=== PATIENT | female | born 1985 | race Caucasian/White ===

== ENCOUNTER 2018-07-30 08:06 | Emergency (ER) | payer OTHER ==
[2018-07-30 08:54] LABS: Absolute Lymphocytes (CBC) 1.4 K/uL (0.7-4.9); Absolute Monocytes 0.4 K/uL (0.1-1.3); Absolute Neutrophil 5.4 K/uL (1.8-8.0); Basophils % 0.3 % (0-1.3); Eosinophils % 1.4 % (0-4.4); Hematocrit 40.5 % (36.0-45.0); Lymphocytes % 18.9 % (15.3-44.8); MPV 9.3 fL (7.6-11.3); Monocytes % 6.1 % (3.3-12.3); RBC Red Blood Cell Count 4.59 M/uL (3.86-4.86)
[2018-07-30 09:16] LABS: Urine Blood NEGATIVE (NEG); Urine Glucose NEGATIVE (NEG); Urine Protein NEGATIVE (NEG)
[2018-07-30 09:34] LABS: BUN Blood Urea Nitrogen 8 mg/dL (7-18); Bicarbonate 27 mmol/L (21-32); Glucose Level 81 mg/dL (74-106); HCG, Quantitative 24024 mIU/mL (1-3); Potassium 3.7 mmol/L (3.5-5.1); Sodium Level 140 mmol/L (136-145)
--- NOTE | 2018-07-30 13:02 | RAD REPORT ---
EXAM DESCRIPTION: US - Transvaginal OB - 07/30/2018 12:49 pm CLINICAL HISTORY: with abdominal pain and vaginal bleeding COMPARISON: None. FINDINGS: The uterus 8 x 4 x 5 centimeters. A gestational sac is present within the endometrium. Wi thin this is a yolk sac and pole with a crown-rump length 3.7 millimeters. Cardiac activity 92 beats per minute. Small subchorionic bleed Ovaries normal in size and echotexture. A 1.5 centimeter right ovarian cyst An adnexal mass is not noted No significant free fluid is seen. IMPRESSION: Single live intrauterine with an estimated gestational age 6 weeks 1 day CURT 03/24/2019 Cardiac activity 92 beats per minute
--- NOTE | 2018-07-30 13:05 | EDPHYS ---
Physician Documentation [facility] Name: Mikaela Lara Age: 32 yrs Sex: Female : 1985 Arrival Date: 07/30/2018 Time: 08:12 Bed 20 Private MD: ED Physician Jean Claude Coombs HPI: 07/30 08:43 This 32 yrs old Female presents to ER via Ambulatory with complaints of snw Vaginal Bleeding, . 08:43 The patient presents with vaginal bleeding that is moderate, heavy. Onset: The snw symptoms/episode began/occurred suddenly, this morning. Modifying factors: The symptoms are alleviated by nothing. Severity of symptoms: At their worst the symptoms were moderate. The patient has experienced similar episodes in the past. The patient has not recently seen a physician. 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 - Social history:: Smoking status: Patient uses tobacco products, denies chronic smoking, but will smoke occasionally. - Ebola Screening: : Patient negative for fever greater than or equal to 101.5 degrees Fahrenheit, and additional compatible Ebola Virus Disease symptoms Patient denies exposure to infectious person Patient denies travel to an Ebola-affected area in the 21 days before illness onset No symptoms or risks identified at this time. ROS: 08:43 Constitutional: Negative for fever, chills, and weight loss, Eyes: Negative for injury, snw pain, redness, and discharge, ENT: Negative for injury, pain, and discharge, Neck: Negative for injury, pain, and swelling, Cardiovascular: Negative for chest pain, palpitations, and edema, Respiratory: Negative for shortness of breath, cough, wheezing, and pleuritic chest pain, Abdomen/GI: Negative for abdominal pain, nausea, vomiting, diarrhea, and constipation, Back: Negative for injury and pain, : Negative for injury, discharge, and swelling, +vaginal bleeding this am MS/Extremity: Negative for injury and deformity, Skin: Negative for injury, rash, and discoloration, Neuro: Negative for headache, weakness, numbness, tingling, and seizure. Exam: 08:43 Constitutional: This is a well developed, well nourished patient who is awake, alert, snw and in no acute distress. Head/Face: Normocephalic, atraumatic. Eyes: Pupils equal round and reactive to light, extra-ocular motions intact. Lids and lashes normal. Conjunctiva and sclera are non-icteric and not injected. Cornea within normal limits. Periorbital areas with no swelling, redness, or edema. ENT: Nares patent. No nasal discharge, no septal abnormalities noted. Tympanic membranes are normal and external auditory canals are clear. Oropharynx with no redness, swelling, or masses, exudates, or evidence of obstruction, uvula midline. Mucous membranes moist. Neck: Trachea midline, no thyromegaly or masses palpated, and no cervical lymphadenopathy. Supple, full range of motion without nuchal rigidity, or vertebral point tenderness. No Meningismus. Chest/axilla: Normal chest wall appearance and motion. Nontender with no deformity. No lesions are appreciated. Cardiovascular: Regular rate and rhythm with a normal S1 and S2. No gallops, murmurs, or rubs. Normal PMI, no JVD. No pulse deficits. Respiratory: Lungs have equal breath sounds bilaterally, clear to auscultation and percussion. No rales, rhonchi or wheezes noted. No increased work of breathing, no retractions or nasal flaring. Back: No spinal tenderness. No costovertebral tenderness. Full range of motion. Skin: Warm, dry with normal turgor. Normal color with no rashes, no lesions, and no evidence of cellulitis. MS/ Extremity: Pulses equal, no cyanosis. Neurovascular intact. Full, normal range of motion. Neuro: Awake and alert, GCS 15, oriented to person, place, time, and situation. Cranial nerves II-XII grossly intact. Motor strength 5/5 in all extremities. Sensory grossly intact. Cerebellar exam normal. Normal gait. 08:43 Abdomen/GI: Inspection: abdomen appears normal, Bowel sounds: active, Palpation: moderate abdominal tenderness, in the suprapubic area. Vital Signs: 08:26 BP 121 / 86; Pulse 82; Resp 18; Pulse Ox 100% on R/A; Weight 58.97 kg; Height 5 ft. 2 em in. (157.48 cm); Pain 8/10; 10:48 BP 107 / 52; Pulse 58; Resp 16; Pulse Ox 100% on R/A; dh3 08:26 Body Mass Index 23.78 (58.97 kg, 157.48 cm) em MDM: 08:40 Patient medically screened. snw 13:06 Data reviewed: vital signs, nurses notes. Data interpreted: Pulse oximetry: on room air snw is 100 %. Interpretation: normal. Counseling: I had a detailed discussion with the patient and/or guardian regarding: the historical points, exam findings, and any diagnostic results supporting the discharge/admit diagnosis, lab results, radiology results, the need for outpatient follow up, to return to the emergency department if symptoms worsen or persist or if there are any questions or concerns that arise at home. Special discussion: Based on the history and exam findings, there is no indication for further emergent testing or inpatient evaluation. I discussed with the patient/guardian the need to see the OB Gyne specialist for further evaluation of the symptoms. 07/30 08:25 Order name: Quantitative Hcg; Complete Time: 09:44 w 07/30 08:25 Order name: Abo/rh Typing; Complete Time: 10:08 w 07/30 08:25 Order name: Basic Metabolic Panel; Complete Time: 09:44 w 07/30 08:25 Order name: CBC with Diff; Complete Time: 08:56 w 07/30 08:40 Order name: Urine Dipstick--Ancillary (enter results); Complete Time: 09:44 [facility] 07/30 08:40 Order name: Urine --Ancillary (enter results); Complete Time: 09:44 07/30 08:25 Order name: Urine Test (obtain specimen); Complete Time: 08:36 snw 07/30 08:25 Order name: IV Saline Lock; Complete Time: 08:46 w 07/30 08:25 Order name: Labs collected and sent; Complete Time: 08:46 w 07/30 08:25 Order name: NPO; Complete Time: 08:46 [facility] 07/30 08:25 Order name: Urine Dipstick-Ancillary (obtain specimen); Complete Time: 08:36 w 07/30 11:55 Order name: Transvaginal OB; Complete Time: 13:03 EDMS Administered Medications: No medications were administered Disposition: 13:28 Co-signature as Attending Physician, Jean Claude Coombs MD I agree with the assessment and kdr plan of care. Disposition: 07/30/18 13:05 Discharged to Home. Impression: Threatened . - Condition is Stable. - Discharge Instructions: Threatened Miscarriage, Vaginal Bleeding During , First Trimester, Subchorionic Hematoma, First Trimester of , Pelvic Rest. - Prescriptions for Vitamin 27- 0.8 mg Oral Tablet - take 1 tablet by ORAL route once daily; 60 tablet. - Medication Reconciliation Form, Thank You Letter, Antibiotic Education, Prescription Opioid Use form. - Follow up: Private Physician; When: 2 - 3 days; Reason: Recheck today's complaints, Continuance of care, Re-evaluation by your physician. Follow up: Emergency Department; When: As needed; Reason: Worsening of condition. Signatures: Dispatcher [employer] [facility] Jean Claude Coombs MD MD kdr Therrien, Shelly, REWORK OPERATOR-C REWORK OPERATOR-Csnw Yehuda Lovell, SENIOR DATA MODELER SENIOR DATA MODELER em Corrections: (The following items were deleted from the chart) 11:55 11:43 Transvaginal Study (Probe)+US.RAD.BRZ ordered. [facility] 13:19 13:05 07/30/2018 13:05 Discharged to Home. Impression: Threatened . Condition em is Stable. Forms are Medication Reconciliation Form, Thank You Letter, Antibiotic Education, Prescription Opioid Use. Follow up: Private Physician; When: 2 - 3 days; Reason: Recheck today's complaints, Continuance of care, Re-evaluation by your physician. Follow up: Emergency Department; When: As needed; Reason: Worsening of condition. snw
--- NOTE | 2018-07-30 13:05 | ER ---
Nurse's Notes [facility] Name: Mikaela Lara Age: 32 yrs Sex: Female : 1985 Arrival Date: 07/30/2018 Time: 08:12 Bed 20 Private MD: Diagnosis: Threatened Presentation: 07/30 08:21 Presenting complaint: Patient states: reports bright vaginal bleeding this morning em around 0700, describes pain as crampy, shooting, found out she was about 2 weeks ago, last LMP 05/22. Transition of care: patient was not received from another setting of care. Onset of symptoms was July 30, 2018. Risk Assessment: Do you want to hurt yourself or someone else? Patient reports no desire to harm self or others. Initial Sepsis Screen: Does the patient meet any 2 criteria? No. Patient's initial sepsis screen is negative. Does the patient have a suspected source of infection? No. Patient's initial sepsis screen is negative. Care prior to arrival: None. 08:21 Method Of Arrival: Ambulatory em 08:22 Acuity: COMPA 3 hb Triage Assessment: 08:26 General: Appears in no apparent distress. comfortable, Behavior is calm, cooperative, em Denies fever. Pain: Complains of pain in pelvis. : Reports vaginal bleeding that is bright red. 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 - Social history:: Smoking status: Patient uses tobacco products, denies chronic smoking, but will smoke occasionally. - Ebola Screening: : Patient negative for fever greater than or equal to 101.5 degrees Fahrenheit, and additional compatible Ebola Virus Disease symptoms Patient denies exposure to infectious person Patient denies travel to an Ebola-affected area in the 21 days before illness onset No symptoms or risks identified at this time. Screenin:28 Abuse screen: Denies threats or abuse. Nutritional screening: No deficits noted. em Tuberculosis screening: No symptoms or risk factors identified. Fall Risk None identified. Assessment: 08:26 General: Appears in no apparent distress. comfortable, Behavior is calm, cooperative, em Denies fever. Pain: Complains of pain in pelvis Pain does not radiate. Pain currently is 8 out of 10 on a pain scale. Quality of pain is described as crampy, shooting, Pain began 1 hour ago. Neuro: Level of Consciousness is awake, alert, obeys commands, Oriented to person, place, time, situation. Cardiovascular: Heart tones S1 S2 present Capillary refill < 3 seconds Patient's skin is warm and dry. Respiratory: Airway is patent Respiratory effort is even, unlabored, Respiratory pattern is regular, symmetrical, Breath sounds are clear bilaterally. GI: Abdomen is flat, Bowel sounds present X 4 quads. Abd is soft and non tender X 4 quads. Reports nausea, vomiting. : Urine is clear, Reports cramping, vaginal bleeding that is bright red, Denies burning with urination, discharge. Derm: Skin is intact, is healthy with good turgor, Skin is pink, warm \T\ dry. Musculoskeletal: Capillary refill < 3 seconds, Range of motion: intact in all extremities. 08:40 Reassessment: I agree with previous assessment. hb 09:57 Reassessment: Patient appears in no apparent distress at this time. Patient and/or em family updated on plan of care and expected duration. Pain level reassessed. Patient is alert, oriented x 3, equal unlabored respirations, skin warm/dry/pink. pending US. 11:13 Reassessment: Patient appears in no apparent distress at this time. Patient and/or em family updated on plan of care and expected duration. Pain level reassessed. Patient is alert, oriented x 3, equal unlabored respirations, skin warm/dry/pink. 12:38 Reassessment: Patient appears in no apparent distress at this time. Patient and/or em family updated on plan of care and expected duration. Pain level reassessed. Patient is alert, oriented x 3, equal unlabored respirations, skin warm/dry/pink. pt wheeled to US. Vital Signs: 08:26 BP 121 / 86; Pulse 82; Resp 18; Pulse Ox 100% on R/A; Weight 58.97 kg; Height 5 ft. 2 em in. (157.48 cm); Pain 8/10; 10:48 BP 107 / 52; Pulse 58; Resp 16; Pulse Ox 100% on R/A; dh3 08:26 Body Mass Index 23.78 (58.97 kg, 157.48 cm) em ED Course: 08:12 Patient arrived in ED. mr 08:15 Anne Marie Valladares, RN is Primary Nurse. hb 08:16 [facility]C [facility] snw 08:16 Jean Claude Coombs MD is Attending Physician. snw 08:20 Urine collected: clean catch specimen, clear. dh3 08:21 Yehuda Lovell LVN is Primary Nurse. em 08:26 Arm band placed on. em 08:28 Patient has correct armband on for positive identification. Placed in gown. Bed in low em position. Call light in reach. Pulse ox on. NIBP on. 08:32 Triage completed. hb 08:40 Initial lab(s) drawn, by me, sent to lab. Inserted saline lock: 22 gauge in right em antecubital area, using aseptic technique. Blood collected. 12:50 Transvaginal OB In Process Unspecified. EDMS 13:18 No provider procedures requiring assistance completed. IV discontinued, intact, em bleeding controlled, No redness/swelling at site. Pressure dressing applied. Administered Medications: No medications were administered Outcome: 13:05 Discharge ordered by . snw 13:18 Discharged to home ambulatory. em 13:18 Condition: good 13:18 Discharge instructions given to patient, Instructed on discharge instructions, follow up and referral plans. medication usage, Demonstrated understanding of instructions, follow-up care, medications, Prescriptions given X 1. 13:19 Patient left the ED. em Signatures: Dispatcher [employer] EDMS Fiona Krueger FNP-C COMMERCIAL FLOOR COVERING INSTALLER-Darinw Elvira EvansYehuda, NON FERROUS MATERIAL HANDLER NON FERROUS MATERIAL HANDLER em Anne Marie Valladares, JACINDA RN Raquel Francis [facility]
== END 2018-07-30 13:19 | disposition home or self-care (01) ==
LOC: ER 08:06
DX: O20.0 Threatened abortion (principal); O99.331 Smoking (tobacco) complicating pregnancy, first trimester; Z3A.01 Less than 8 weeks gestation of pregnancy
CPT/HCPCS: 36415; 76817; 80048; 81003; 81025; 84702; 85025; 86900; 86901; 99284